=== PATIENT | female | born 1980 | race African-American/Black ===

== ENCOUNTER 2018-05-05 01:16 | Emergency (ER) | payer SELFPAY ==
[2018-05-05 01:46] VITALS: BP 128/90; PULSE 99; TEMP 98.4; BMI 34.0
--- NOTE | 2018-05-05 02:38 | PDOC ---
History of Present Illness - General Chief Complaint: Pain, Acute Stated Complaint: RIB PAIN Time Seen by Provider: 05/05/18 02:02 History Source: Patient Exam Limitations: No Limitations - History of Present Illness Initial Comments: 05/05/18 02:33 Best Contact: PCP: Dr. Teresa Wilhelm Pmhx:0 Pshx: ? Laparotomy, 2000 for: Allergies: Penicillin/hives FH: Denies Social Hx: Cigarettes/ denies Alcohol/ denies Drugs denies/ LMP: 04/06/2018 ISTOP: 01/15/2018: Oxycodone/tylenol quant 10 /[facility] 38-year-old female presents to the emergency department complaining of pain to the left distal lateral/posterior ribs. Patient states she tripped 2 days ago landing on her left lateral/back. Patient states she's been taking OxyContin which she had leftover with relief yesterday. Pain is exacerbated on touch and deep inspiration and alleviated minimally when breathing shallow. Patient denies hemoptysis, fever, chills, nausea/vomiting, headache, dizziness, lightheadedness, facial pains, neck pain/stiffness, chest pain, shortness of breath, abdominal pains, flank pains, urinary symptoms, extremity numbness or tingling sensation. 05/05/18 04:38 Past History - Past Medical History Allergies/Adverse Reactions: Allergies Allergy/AdvReac Type Severity Reaction Status Date / Time Penicillins Allergy Mild Rash Verified 05/05/18 02:36 Home Medications: Ambulatory Orders Unobtainable 05/05/18 COPD: No - Immunization History Immunization Up to Date: Yes - Suicide/Smoking/Psychosocial Hx Smoking History: Never smoked Have you smoked in the past 12 months: No Substance Use Type: None Review of Systems - Review of Systems Able to Perform ROS?: Yes Comments:: 05/05/18 02:37 CONSTITUTIONAL: Absent: fever, chills, diaphoresis, generalized weakness, malaise, loss of appetite HEENT: Absent: rhinorrhea, nasal congestion, throat pain, throat swelling, difficulty swallowing, mouth swelling, ear pain, eye pain, visual Changes CARDIOVASCULAR: Absent: chest pain, loss of consciousness, palpitations, irregular heart rate, peripheral edema RESPIRATORY: Absent: cough, shortness of breath, dyspnea with exertion, orthopnea, wheezing, stridor, hemoptysis GASTROINTESTINAL: Absent: abdominal pain, abdominal distension, nausea, vomiting, diarrhea, constipation, melena, hematochezia GENITOURINARY: Absent: dysuria, frequency, urgency, hesitancy, hematuria, flank pain, genital pain MUSCULOSKELETAL: +pain to distal/lat/posterior ribs Absent: myalgia, arthralgia, joint swelling SKIN: Absent: rash, itching, pallor HEMATOLOGIC/IMMUNOLOGIC: Absent: easy bleeding, easy bruising, lymphadenopathy, frequent infections ENDOCRINE: Absent: unexplained weight gain, unexplained weight loss, heat intolerance, cold intolerance NEUROLOGIC: Absent: headache, focal weakness or paresthesias, dizziness, unsteady gait, seizure, mental status changes, bladder or bowel incontinence PSYCHIATRIC: Absent: anxiety, depression, suicidal or homicidal ideation, hallucinations. Is the patient limited Sami proficient: No *Physical Exam - Vital Signs Last Vital Signs Temp Pulse Resp BP Pulse Ox 98.4 F 99 H 20 128/90 99 05/05/18 01:43 05/05/18 01:43 05/05/18 01:43 05/05/18 01:43 05/05/18 01:43 - Physical Exam Comments: 05/05/18 02:38 GENERAL: Well developed, well nourished. Awake and alert. No acute distress. HEENT: Normocephalic, atraumatic. PERRLA, EOMI. No conjunctival pallor. Sclera are non- icteric. Moist mucous membranes. Oropharynx is clear. NECK: Supple. Full ROM. No JVD. Carotid pulses 2+ and symmetric, without bruits. No thyromegaly. No lymphadenopathy. CARDIOVASCULAR: Regular rate and rhythm. No murmurs, rubs, or gallops. Distal pulses are 2+ and symmetric. PULMONARY: No evidence of respiratory distress. Lungs clear to auscultation bilaterally. No wheezing, rales or rhonchi. ABDOMINAL: Soft. Non-tender. Non-distended. No rebound or guarding. No organomegaly. Normoactive bowel sounds. MUSCULOSKELETAL +pain on palp to distal lat/posterior ribs on palp Normal range of motion at all joints. No bony deformities or tenderness. No CVA tenderness. EXTREMITIES: No cyanosis. No clubbing. No edema. No calf tenderness. SKIN: Warm and dry. Normal capillary refill. No rashes. No jaundice. NEUROLOGICAL: Alert, awake, appropriate. Cranial nerves 2-12 intact. No deficits to light touch and temperature in face, upper extremities and lower extremities. No motor deficits in the in face, upper extremities and lower extremities. Normoreflexic in the upper and lower extremities. Normal speech. Toes are down- going bilaterally. Gait is normal without ataxia. PSYCHIATRIC: Cooperative. Good eye contact. Appropriate mood and affect. ED Treatment Course - LABORATORY CBC & Chemistry Diagram: 05/05/18 03:14 05/05/18 03:14 - RADIOLOGY Radiology Studies Ordered: Category Date Time Status CHEST PA & LAT [RAD] Stat Radiology 05/05/18 02:17 Ordered RIBS-LEFT SIDE [RAD] Stat Radiology 05/05/18 02:17 Ordered Radiograph Interpretation: 05/05/18 02:38 CXR 2v; NAD Left rib series xray: Neg obv fx CAT scan chest without contrast, abdomen and pelvis with IV contrast: Chest: No aortic aneurysm. No mediastinal hematoma. No significant mediastinal or hilar adenopathy. Heart size is normal. The trachea bronchi are patent. There is no pleural or pericardial effusion. The lungs are clear. No pneumothorax CAT scan abdomen and pelvis shows a normal liver, gallbladder, pancreas, spleen , adrenal glands and kidneys. The stomach and abdominal small and large bowel are normal. No aortic aneurysm. No significant retroperitoneal lymphadenopathy. No mesenteric edema retroperitoneal hematoma. Small to moderate-sized fat containing umbilical hernia is noted. *DC/Admit/Observation/Transfer Diagnosis at time of Disposition: Rib pain on left side - Discharge Dispostion Disposition: HOME Condition at time of disposition: Stable Decision to Admit order: No - Referrals Referrals: Kyle Anderson MD [Primary Care Provider] - - Patient Instructions Printed Discharge Instructions: DI for Contusion Additional Instructions: You had a CAT scan of your chest, abdomen and pelvis while in the ER today. The CAT scan were benign. Normal liver, gallbladder, pancreas, spleen, adrenal glands and kidneys. Stomach and abdominal small and large bowels are normal. They did note a small to moderate-sized fat containing buckle hernia. Motrin as needed for pain Prescription: Tylenol with Codeine 1 tab every 6 hours as needed for severe pain Follow-up with the orthopedic surgeon listed on your discharge Return back to the emergency department for severe/persistent or worsening symptoms or any concerns - Post Discharge Activity
[2018-05-05] MEDS ORDERED: KETOROLAC TROMETHAMINE 60 MG/2 ML VIAL IM ONE (03:07)
[2018-05-05 03:51] LABS: ALBUMIN 4.1 g/dl (3.4-5.0); ALK PHOS 95 U/L (45-117); ANION GAP 6 MMOL/L (8-16); BILIRUBIN,TOTAL 0.8 mg/dL (0.2-1); BLOOD UREA NITROGEN 11 mg/dL (7-18); CALCIUM 9.6 mg/dL (8.5-10.1); CHLORIDE 100 mmol/L (98-107); CO2 30 mmol/L (21-32); CREATININE 0.9 mg/dL (0.55-1.3); GLUCOSE,RANDOM 96 mg/dL (74-106); POTASSIUM 3.9 mmol/L (3.5-5.1); SGOT/AST 21 U/L (15-37); SGPT/ALT 30 U/L (13-61); SODIUM 136 mmol/L (136-145); TOT PROT 8.4 g/dl (6.4-8.2)
[2018-05-05] MEDS ORDERED: KETOROLAC TROMETHAMINE 60 MG/2 ML VIAL ONE (03:56)
[2018-05-05 04:26] LABS: BASO % 0.4 % (0-2.0); EOS % 1.9 % (0-4.5); HEMATOCRIT 40.1 % (32.4-45.2); HEMOGLOBIN 13.7 GM/dL (10.7-15.3); LYMPH % 32.7 % (8-40); MCH 30.6 pg (25.7-33.7); MCHC 34.2 g/dl (32.0-36.0); MEAN CELL VOLUME 89.6 fl (80-96); MEAN PLT VOLUME 8.2 fl (7.5-11.1); PLATELET COUNT 305 K/MM3 (134-434); RBC 4.47 M/mm3 (3.60-5.2); RDW 13.1 % (11.6-15.6); WHITE BLOOD COUNT 11.1 K/mm3 (4.0-10.0)
== END 2018-05-05 05:39 | disposition home or self-care (01) ==
LOC: JER 01:16
PROC: 3E0233Z Introduction of Anti-inflammatory into Muscle, Percutaneous Approach (ICD-10-PCS; principal; 2018-05-05)
DX: S20.222A Contusion of left back wall of thorax, initial encounter (principal); W01.0XXA Fall on same level from slipping, tripping and stumbling without subsequent striking against object, initial encounter; Y93.89 Activity, other specified; Y92.89 Other specified places as the place of occurrence of the external cause; Y99.8 Other external cause status
CPT/HCPCS: 36415; 71046-TC-FY; 71101-TC-FY; 71250-TC; 74177-TC; 80053; 84703; 85025; 99282-25